=== PATIENT | female | born 1945 | race Caucasian/White ===

== ENCOUNTER 2017-12-27 09:13 | Outpatient (REF) | payer MEDICARE, OTHER, SELFPAY ==
[2017-12-27 13:11] LABS: Cholesterol 196 mg/dL (50-200); HDL Cholesterol 78 mg/dL (40-60); LDL CHOLESTEROL 100 mg/dL (<100); TSH (W/Ref FT4) 1.77 uIU/mL (0.358-3.74); Triglyceride 90 mg/dL (30-150)
== END 2017-12-27 09:33 ==
LOC: NCHCN 09:13
PROVIDERS: Visit Provider Nurse Practitioner
DX: R73.03 Prediabetes (principal); I69.30 Unspecified sequelae of cerebral infarction; E03.9 Hypothyroidism, unspecified
CPT/HCPCS: 80061; 83721; 83036; 84443

== ENCOUNTER 2018-04-11 09:35 | Outpatient (REF) | payer MEDICARE, OTHER, SELFPAY ==
[2018-04-11 15:12] LABS: Anion Gap 7.6 mmol/L (3-11); BUN 14 mg/dL (7-18); CO2 28.4 mmol/L (21.0-32.0); CREATININE 0.73 mg/dL (0.55-1.02); Calcium 8.6 mg/dL (8.5-10.1); Chloride 105 mmol/L (98-107); Cholesterol 149 mg/dL (50-200); Glucose 109 mg/dL (70-100); HDL Cholesterol 84 mg/dL (40-60); LDL CHOLESTEROL 53 mg/dL (<100); Potassium 4.3 mmol/L (3.5-5.1); Sodium 141 mmol/L (136-145); Triglyceride 74 mg/dL (30-150)
[2018-04-12 10:31] LABS: Hepatitis C Ab w Rflx HCV PCR Negative (NEGAT)
== END 2018-04-11 09:55 ==
LOC: NCHCN 09:35
PROVIDERS: PCP Nurse Practitioner; Visit Provider Nurse Practitioner
DX: E03.9 Hypothyroidism, unspecified (principal); R73.01 Impaired fasting glucose; Z11.59 Encounter for screening for other viral diseases
CPT/HCPCS: 80048; 80061; 83721; 86803

== ENCOUNTER 2018-12-26 09:46 | Outpatient (REF) | payer MEDICARE, SELFPAY ==
[2018-12-26 13:30] LABS: ALT 21 U/L (14-59); AST 17 U/L (15-37); Albumin 3.6 g/dL (3.4-5.0); Alkaline Phosphatase 55 U/L (46-116); Anion Gap 8.2 mmol/L (3-11); BUN 12 mg/dL (7-18); Bilirubin, Total 0.5 mg/dL (0.2-1.0); CO2 26.8 mmol/L (21.0-32.0); CREATININE 0.64 mg/dL (0.55-1.02); Calcium 8.6 mg/dL (8.5-10.1); Calculated LDL 35 mg/dL; Chloride 109 mmol/L (98-107); Cholesterol 138 mg/dL (50-200); Glucose 100 mg/dL (70-100); HDL Cholesterol 80 mg/dL (40-60); Potassium 4.1 mmol/L (3.5-5.1); Sodium 144 mmol/L (136-145); Total Protein 6.9 g/dL (6.4-8.2); Triglyceride 118 mg/dL (30-150)
== END 2018-12-26 10:06 ==
LOC: NCHCN 09:46
PROVIDERS: PCP Nurse Practitioner; Visit Provider Family Medicine
DX: E03.9 Hypothyroidism, unspecified (principal); R73.03 Prediabetes; R10.2 Pelvic and perineal pain; I69.30 Unspecified sequelae of cerebral infarction
CPT/HCPCS: 80053; 80061

== ENCOUNTER 2019-09-28 01:52 | Outpatient (CLI) | payer MEDICARE, OTHER, SELFPAY ==
--- NOTE | 2019-09-28 | DI.MAMMO_ITS ---
EXAM: MAMMO SCREENING CLINICAL HISTORY: SCREENING, Z12.31 TECHNIQUE: Mammograms were interpreted according to the usual protocol including computer analysis w sofatronic CAD system, tomosynthesis and C-view imaging. COMPARISON: FINDINGS: The breasts are very dense with fairly symmetrical distribution of fibroglandular tissue. No dominan t mass or clumped microcalcification is identified in either breast. The current examination is comp ared with previous examinations including November 2016 and there has no gross change in appearance com parison previous studies. IMPRESSION: No specific evidence of malignancy at this time. Routine screening examinations are suggested yearly intervals due to the family history of breast carcinoma. BI-RADS Category 1 - Negative Breast Density - Category D - Extremely dense
--- NOTE | 2019-09-28 | DI.DEXA_ITS ---
EXAM: XR DEXA BONE DENSITY W/WO MARTIN CLINICAL HISTORY: AGE-RELATED OSTEOPOROSIS, M81.0 TECHNIQUE: COMPARISON: No exams were available for comparison FINDINGS: DEXA scan was performed according to the usual protocol. Please see accompanying data sheets. Findings for left hip scanning are T-score -1.6 with left femoral neck T-score -1.8. Previous examin ation of November 2016 showed left hip T-score -1.5. Lumbar spine scanning shows T-score -2.9, prior study of November 2016 showed lumbar T-score -2.8. Left forearm scanning shows T-score -0.7, prior study of 2017 showed left forearm T-score -0.2. IMPRESSION: Findings consistent with osteoporosis according to the WHO criteria. The lateral vertebral scanogram shows no evidence of a vertebral compression fracture.
== END 2019-09-28 02:12 ==
PROVIDERS: PCP Family Medicine; Visit Provider Nurse Practitioner Family
DX: M81.0 Age-related osteoporosis without current pathological fracture (principal); Z12.31 Encounter for screening mammogram for malignant neoplasm of breast; Z80.3 Family history of malignant neoplasm of breast
CPT/HCPCS: 77063; 77067; 77080

== ENCOUNTER 2019-11-29 10:05 | Outpatient (REF) | payer MEDICARE, OTHER, SELFPAY ==
[2019-11-29 21:02] LABS: Hemoglobin A1C 6.1 % (3.8-5.6)
[2019-11-29 21:06] LABS: ALT 23 U/L (14-59); AST 18 U/L (15-37); Albumin 3.6 g/dL (3.4-5.0); Alkaline Phosphatase 47 U/L (46-116); Anion Gap 4.4 mmol/L (3-11); BUN 15 mg/dL (7-18); Bilirubin, Total 0.4 mg/dL (0.2-1.0); CO2 28.6 mmol/L (21.0-32.0); CREATININE 0.58 mg/dL (0.55-1.02); Calcium 8.2 mg/dL (8.5-10.1); Calculated LDL 55 mg/dL (<100); Chloride 109 mmol/L (98-107); Cholesterol 158 mg/dL (<200); Glucose 75 mg/dL (74-106); HDL Cholesterol 84 mg/dL (40-60); Potassium 4.2 mmol/L (3.5-5.1); Sodium 142 mmol/L (136-145); TSH (W/Ref FT4) 0.75 uIU/mL (0.36-3.74); Total Protein 6.7 g/dL (6.4-8.2); Triglyceride 95 mg/dL (<150)
== END 2019-11-29 10:25 ==
LOC: NCHCN 10:05
PROVIDERS: PCP Family Medicine; Visit Provider Family Medicine
DX: I10 Essential (primary) hypertension (principal); R73.03 Prediabetes; E03.9 Hypothyroidism, unspecified
CPT/HCPCS: 80053; 80061; 83036; 84443

== ENCOUNTER 2020-02-08 08:33 | Outpatient (REF) | payer MEDICARE, OTHER, SELFPAY ==
[2020-02-08 22:10] LABS: Hemoglobin A1C 6.1 % (<5.7)
== END 2020-02-08 08:53 ==
LOC: LBN 08:33
PROVIDERS: PCP Family Medicine; Visit Provider Family Medicine
DX: R73.03 Prediabetes (principal)
CPT/HCPCS: 83036

== ENCOUNTER 2020-07-04 01:25 | Outpatient (CLI) | payer MEDICARE, SELFPAY ==
--- NOTE | 2020-07-04 08:00 | DI.NM_ITS ---
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 Nuclear Acquisition: Rest Tc-99m/Stress Tc-99m 1 day Rest Isotope: Tc-99m Sestamibi. Dose: 11.0 Date: 07/04/2020 Injection Time: 0815 Stress Isotope: Tc-99m Sestamibi. Dose: 35.5 Date: 07/04/2020 Injection Time: 0950 HR Resting HR Supine: 71 bpm Max Heart Rate (APMHR): 146 bpm Resting HR Standin bpm Target HR (85% APMHR): 124 bpm Max HR Achieved: 162 bpm % of APMHR: 110 Recovery HR: 94 bpm HR response to stress: Accelerated HR response to stress BP Resting BP Supine: 122/86 mmHg Resting BP Standin/84 mmHg Max BP: 200/96 mmHg Recovery BP: 162/92 mmHg BP response to stress: Normal blood pressure response to stress. ECG Resting ECG: Sinus Rhythm Ectopy: Occasional PVC Stress ECG: Sinus Tachycardia ST Change: No significant ST segment changes noted Arrhythmia: Increased ectopy with maximal effort of exercise: PVCs, couplets, triplets Recovery ECG: Sinus Rhythm Recovery ST Change: No significant ST segment changes noted Recovery Arrhythmia: PACs, PAC couplet Clinical Reason for Termination: Dyspnea Stress Symptoms: Dyspnea Exercise duration: 4 min07 sec Highest Stage Reached: Stage 2: 2.5 mph at 12% grade. Exercise capacity: 5.95 METs Rate Pressure Product: 41041 Stress ECG Conclusion 1. The patient exercised for 4 minutes (6 METS). 2. The patient's heart rate and blood pressure augmented appropriately. 3. There is no evidence of ischemia on the ECG portion of the exam. Stress Test Summary STAGE Time (mins) Speed (mph) Grade (%) HR BP SYMPTOMS METS Supine 71 122/86 Standing 71 128/84 1 3 1.7 10 143 176/90 moderate SOB, SPO2 97% 4.6 1 min recovery 101 200/96 3 min recovery 89 174/90 6 min recovery 94 162/92 MPI Conclusion The ejection fraction was 63% with stress. There were no wall motion abnormalities There is a small entirely reversible area of perfusion defect of the basal inferior septum. This likely represents an abnormal stress test.
== END 2020-07-04 01:45 ==
PROVIDERS: PCP Family Medicine; Visit Provider Family Medicine
DX: I20.9 Angina pectoris, unspecified (principal); I10 Essential (primary) hypertension; J44.9 Chronic obstructive pulmonary disease, unspecified; Z82.49 Family history of ischemic heart disease and other diseases of the circulatory system
CPT/HCPCS: 78452; 93016; 93018; 93017

== ENCOUNTER → 2020-07-19 12:53 | Outpatient (BNVA) | payer MEDICARE, SELFPAY | PROVIDERS: PCP Family Medicine; Referring Provider Family Medicine; Visit Provider Internal Medicine Cardiovascular Disease | DX: I63.531 Cerebral infarction due to unspecified occlusion or stenosis of right posterior cerebral artery (principal); E78.5 Hyperlipidemia, unspecified; I63.9 Cerebral infarction, unspecified; R93.89 Abnormal findings on diagnostic imaging of other specified body structures | CPT/HCPCS: 99203; 99213 ==

== ENCOUNTER 2021-07-08 01:57 | Outpatient (CLI) | payer MEDICARE, SELFPAY ==
--- NOTE | 2021-07-08 10:30 | DI.MAMMO_ITS ---
Exam(s) MAMMO SCREENING EXAM: MAMMO SCREENING CLINICAL HISTORY: SCREENING, Z12.31; FAMILY H/O BREAST CA, Z80.3 TECHNIQUE: Bilateral full field digital CC and MLO mammographic images were obtained with 3D tomosyn thesis and utilizing computer aided detection (CAD). COMPARISON: Available for comparison. FINDINGS: Masses/Architectural Distortion: There is a question of architectural distortion on the right MLO vie w slice 23 on the tomograms. Microcalcifications: No suspicious pleomorphic-type are seen. Skin Thickening/Nipple Retraction: None. IMPRESSION: 1. Question of architectural distortion in the right breast posteriorly. 2. This area should be further evaluated with a spot compression view ultrasound may be indicated at that time. BI-RADS Category 0 - Assessment Incomplete: Need additional imaging evaluation Breast Density - Category C - Heterogeneously dense Breast density category C or D implies that the patient has dense breast tissue. Dense breast tissue is very common and is not abnormal but dense breast tissue can make it harder to find cancer on a ma mmogram. Also, dense breast tissue may increase their breast cancer risk. This information about the result of the mammogram report was provided to the patient to raise their awareness. Use this report when you speak with the patient about their risks for breast cancer, which includes their family hist ory. At that time, you may recommend for more screening tests (Ultrasound or MRI) as they might be us eful based on their risk. A negative radiographic report should not delay biopsy if a dominant or clinically suspicious mass is present. Up to ten percent of cancers are not identified on mammography. A negative report may reinforce clinical impression. Adenosis and dense breasts may obscure an underlying neoplasm. False positive reports average 6 to 10%. Patient will receive a letter notifying them of these results.
== END 2021-07-08 02:17 ==
PROVIDERS: PCP Family Medicine; Visit Provider Family Medicine
DX: Z12.31 Encounter for screening mammogram for malignant neoplasm of breast (principal); Z80.3 Family history of malignant neoplasm of breast; R92.8 Other abnormal and inconclusive findings on diagnostic imaging of breast
CPT/HCPCS: 77063; 77067

== ENCOUNTER 2021-07-15 17:03 | Outpatient (REF) | payer MEDICARE, SELFPAY ==
--- OUTSIDE RECORDS SUMMARY | 2021-07-15 17:13 | XMS_ITS | CCD ---
:1945 Author Care Team Providers Name Role Phone DEBBIE MCKINNEY Attending Physician Unavailable Vital Signs Unknown or Not Available. Allergies Unknown or Not Available. Procedures Procedure Code Procedure Type Date Arthrocentesis Aspir&/Inj Major 91826 CPT 10/02/2020 Jt/Bursa w/o US History of Immunizations Unknown or Not Available. Problems Unknown or Not Available. Results Unknown or Not Available. Active Medications Unknown or Not Available. Medications Administered During Visit Unknown or Not Available. Encounters Encounter Diagnosis Diagnosis Code Start Date Unilateral primary osteoarthritis, left knee [id number] 10/02/2020 Social History Smoking Status Code Start Date End Date Former smoker [id number] Patient Decision Aids Unknown or Not Available. Discharge Instructions You were admitted to [facility] on 10/02/2020 09:37 with a principal diagnosis of Unilateral primary osteoart hritis, left knee You had the following procedures done: Arthrocentesis Aspir&/Inj Major Jt/Bursa w/o US You were discharged from [facility] on 10/02/2020 09:37 Should you have any questions prior to d ischarge, please contact a member of your healthcare team. If you have left the ho spital and have any questions, please contact your primary care physician. Chief Complaint and Reason For Visit Unknown or Not Available. Function Status Unknown or Not Available. Plan of Care Unknown or Not Available. Referral/Transition of Care Unknown or Not Available.
[2021-07-15 17:14] LABS: FREE T4 0.71 ng/dL (0.76-1.46); TSH 1.54 uIU/mL (0.36-3.74)
== END 2021-07-15 17:04 | disposition home or self-care (01) ==
LOC: NCHCN 17:03
PROVIDERS: PCP Family Medicine; Visit Provider Family Medicine
DX: R73.03 Prediabetes (principal); E03.9 Hypothyroidism, unspecified
CPT/HCPCS: 83036; 84439; 84443

== ENCOUNTER 2021-07-16 01:16 | Outpatient (CLI) | payer MEDICARE, SELFPAY ==
--- NOTE | 2021-07-16 | DI.MAMMO_ITS ---
Exam(s) MAMMO SCREEN CALL BACK UNI EXAM: MAMMO SCREEN CALL BACK UNI CLINICAL HISTORY: F/U MAMMO, ? ARCHITECTURAL DISTORTION TECHNIQUE: Spot compression MLO view and tomographic imaging were performed. COMPARISON: 08 July 2021 and exams back to 2013 FINDINGS: No suspicious masses or suspicious microcalcifications are seen. No persistent abnormality is seen on the additional views performed. The findings are consistent wit h overlying fibroglandular tissue. There has been no significant change from prior exams. IMPRESSION: BI-RADS Category 1, Negative Yearly screening mammography is recommended. Breast Density - Category B, scattered fibroglandular densities.
--- NOTE | 2021-07-16 | DI.US_ITS ---
Exam(s) US BREAST RT COMPLETE EXAM: US BREAST RT COMPLETE CLINICAL HISTORY: f/u mammo, ? architectual distortion TECHNIQUE: Ultrasound right breast performed using standard protocol. COMPARISON: MG Screening Bilat Mammo from 08/29/2013 MG Screening Bilat Mammo from 08/12/2015 MG Screening Bilat Mammo from 12/01/2016 MG MG MAMMO SCREENING from 09/28/2019 MG MG MAMMO SCREENING from 07/08/2021 MG MG MAMMO SCREEN CALL BACK UNI from 07/16/2021 FINDINGS: Whole breast ultrasound was performed. No solid or cystic masses, hypoechoic foci, areas of abnormal shadowing, or areas of skin thickening. IMPRESSION: No sonographically suspicious finding. BI-RADS Category 1 - Negative DATA REPOSITORY:
== END 2021-07-16 01:36 ==
PROVIDERS: PCP Family Medicine; Visit Provider Family Medicine
DX: Z12.31 Encounter for screening mammogram for malignant neoplasm of breast (principal); R92.8 Other abnormal and inconclusive findings on diagnostic imaging of breast; N64.59 Other signs and symptoms in breast
CPT/HCPCS: 76642; 77063; 77067

== ENCOUNTER 2021-08-21 03:47 | Outpatient (CLI) | payer MEDICARE, SELFPAY ==
[2021-08-21 20:31] LABS: Estradiol <12 pg/mL (See Note)
[2021-08-21 20:45] LABS: Sex Hormone Binding Globulin 58.5 nmol/L (See Note)
[2021-08-23 10:38] LABS: Estriol, Unconjugated <0.07 ng/mL (<0.08)
[2021-08-25 15:51] LABS: Estrone 11 pg/mL
== END 2021-08-21 03:48 | disposition home or self-care (01) ==
LOC: LBO 03:48
PROVIDERS: PCP Family Medicine; Visit Provider Naturopath
DX: E34.51 Complete androgen insensitivity syndrome (principal); M81.8 Other osteoporosis without current pathological fracture
CPT/HCPCS: 36415; 82670; 82677; 82679; 84270

== ENCOUNTER 2021-12-26 00:53 | Outpatient (CLI) | payer MEDICARE, SELFPAY ==
[2021-12-26 10:01] LABS: HCT 43.6 % (36.0-46.0); HGB 14.2 g/dL (11.2-15.7); MCH 30.5 pg (27.0-33.0); MCHC 32.6 % (32.0-36.0); MCV 94 fL (80-95); MPV 9.5 fL (8.0-11.0); Platelet Count 207 10^3/uL (130-400); RBC 4.66 10^6/uL (3.93-5.22); RDW 12.7 % (11.7-14.6); RDW-SD 43.4 fL; WBC 5.17 10^3/uL (4.4-10.8)
[2021-12-26 10:49] LABS: Anion Gap 6.8 mmol/L (3-11); BUN 19 mg/dL (7-18); CO2 31.2 mmol/L (21.0-32.0); CREATININE 0.7 mg/dL (0.55-1.02); Calcium 9.1 mg/dL (8.5-10.1); Chloride 103 mmol/L (98-107); Estimated GFR 89.58 (mL/min/1.73m2); FREE T4 0.87 ng/dL (0.76-1.46); Glucose 86 mg/dL (74-106); Potassium 4.1 mmol/L (3.5-5.1); Sodium 141 mmol/L (136-145); TSH 1.64 uIU/mL (0.36-3.74)
[2021-12-26 20:14] LABS: Parathyroid Hormone,Intact 45 pg/mL (19-88)
[2021-12-29 06:02] LABS: Vitamin D 25 Total 24.7 ng/mL (30-100)
[2021-12-29 10:46] LABS: Beta-CrossLaps (B-CTx) 273 pg/mL
[2021-12-30 12:34] LABS: Testosterone, Total <7.0 ng/dL (8-60)
[2021-12-30 18:09] LABS: Estradiol 20 pg/mL (See Note)
[2021-12-31 13:43] LABS: Estriol, Unconjugated <0.07 ng/mL (<0.08)
== END 2021-12-26 00:54 | disposition home or self-care (01) ==
LOC: LBO 00:53
PROVIDERS: Naturopath; PCP Family Medicine; Visit Provider Internal Medicine Endocrinology, Diabetes & Metabolism
DX: E34.50 Androgen insensitivity syndrome, unspecified (principal); M81.0 Age-related osteoporosis without current pathological fracture; E03.9 Hypothyroidism, unspecified
CPT/HCPCS: 36415; 80048; 82306; 82523; 84403; 85027; 82670; 82677; 83970; 84439; 84443

== ENCOUNTER 2021-12-30 10:19 | Outpatient (REF) | payer MEDICARE, SELFPAY ==
[2021-12-30 11:37] LABS: Creatinine,Urine 53.15 mg/dL
[2021-12-30 11:38] LABS: Total Volume 1550 ml
[2021-12-31 09:18] LABS: Calcium Urine 14.4 mg/dL (See Note); Calcium Urine 24 hr 223 mg/24hrs (100-300); Timed Urine Volume 1550 mL
== END 2021-12-30 10:20 | disposition home or self-care (01) ==
LOC: LBN 10:19
PROVIDERS: PCP Family Medicine; Visit Provider Internal Medicine Endocrinology, Diabetes & Metabolism
DX: E34.50 Androgen insensitivity syndrome, unspecified (principal); M81.0 Age-related osteoporosis without current pathological fracture
CPT/HCPCS: 81050; 82340; 82570

== ENCOUNTER 2022-04-21 09:52 | Outpatient (REF) | payer MEDICARE, SELFPAY ==
[2022-04-21 15:44] LABS: ALT 20 U/L (14-59); AST 21 U/L (15-37); Albumin 3.9 g/dL (3.4-5.0); Alkaline Phosphatase 67 U/L (46-116); Anion Gap 7.6 mmol/L (3-11); BUN 18 mg/dL (7-18); Bilirubin, Total 0.4 mg/dL (0.2-1.0); CO2 28.4 mmol/L (21.0-32.0); CREATININE 0.6 mg/dL (0.55-1.02); Calcium 8.7 mg/dL (8.5-10.1); Calculated LDL 92 mg/dL (<100); Chloride 105 mmol/L (98-107); Cholesterol 185 mg/dL (<200); Estimated GFR 92.97 (mL/min/1.73m2); Glucose 109 mg/dL (74-106); HDL Cholesterol 76 mg/dL (40-60); Potassium 4.3 mmol/L (3.5-5.1); Sodium 141 mmol/L (136-145); TSH (W/Ref FT4) 0.75 uIU/mL (0.36-3.74); Total Protein 7.3 g/dL (6.4-8.2); Triglyceride 89 mg/dL (<150)
[2022-04-21 15:55] LABS: Vitamin D 25 Total 18.4 ng/mL (30-100)
== END 2022-04-21 09:53 | disposition home or self-care (01) ==
LOC: NCHCN 09:52
PROVIDERS: PCP Family Medicine; Visit Provider Family Medicine
DX: I10 Essential (primary) hypertension (principal); M81.0 Age-related osteoporosis without current pathological fracture; E03.9 Hypothyroidism, unspecified; R73.03 Prediabetes; E78.5 Hyperlipidemia, unspecified; Z00.00 Encounter for general adult medical examination without abnormal findings
CPT/HCPCS: 80053; 80061; 82306; 84443

== ENCOUNTER 2022-06-29 10:25 | Outpatient (REF) | payer MEDICARE, SELFPAY | END 2022-06-29 10:26 | disposition home or self-care (01) | LOC: NCHCN 10:25 | PROVIDERS: PCP Family Medicine; Visit Provider Family Medicine | DX: E55.9 Vitamin D deficiency, unspecified (principal); E63.8 Other specified nutritional deficiencies | CPT/HCPCS: 82306 ==

== ENCOUNTER 2022-11-02 00:40 | Outpatient (CLI) | payer MEDICARE, SELFPAY ==
--- NOTE | 2022-11-02 | DI.MAMMO_ITS ---
Exam(s) MAMMO SCREENING EXAM: MAMMO SCREENING CLINICAL HISTORY: SCREENING, Z12.31. TECHNIQUE: Bilateral full field digital CC and MLO mammographic images were obtained with 3D tomosyn thesis and utilizing computer aided detection (CAD). COMPARISON: Prior mammograms were reviewed. Prior ultrasound July 2021 also reviewed. FINDINGS: The fibroglandular tissue pattern is again noted be moderately dense. There are no obvious new spiculated masses nor malignant appearing microcalcification groups. There is no significant architectural distortion nor skin thickening-retraction. IMPRESSION: Moderately dense fibroglandular tissue. No obvious radiographic evidence of malignancy nor significa nt change compared prior mammograms. BI-RADS Category 1 - Negative Breast Density - Category C - Heterogeneously dense Breast density Category C or D implies that the patient has dense breast tissue. Dense breast tissue can make it harder to find cancer on a mammogram. Dense breast tissue is also associated with an incr eased risk of breast cancer. This information about the result of the mammogram report was provided to the patient to raise their awareness. Use this report when you speak with the patient about their risks for breast cancer, which includes their family history. At that time, you may recommend additional screening tests (Ultrasoun d or MRI) as these tests may add significant information. A negative radiographic report should not delay biopsy if a dominant or clinically suspicious mass is present. Up to ten percent of cancers are not identified on mammography. A negative report may reinforce clinical impression. Adenosis and dense breasts may obscure an underlying neoplasm. False positive reports average 6 to 10%. Patient will receive a letter notifying them of these results.
--- NOTE | 2022-11-02 | DI.CT_ITS ---
Exam(s) CT CHEST WO EXAM: CT CHEST WO CLINICAL HISTORY: COPD, J44.9. TECHNIQUE: Multi planar reconstructions were performed. CONTRAST MATERIAL: None COMPARISON: CT CHEST WITH CONTRAST from 07/26/2017 FINDINGS: CHEST: LUNGS: Bilateral hyperinflation is again noted. There are no bullae. No significant findings in tra flavio and mainstem bronchi. No infiltrates nor pleural effusions. No ominous pulmonary nodules. MEDIASTINUM: There is no obvious hilar nor mediastinal adenopathy. Visualized thyroid unremarkable.No obvious axillary adenopathy CARDIAC: Heart size is normal. There is no pericardial effusion.Caliber of the thoracic aorta is wit hin normal limits. VISUALIZED UPPER ABDOMEN: OSSEOUS: No significant osseous lesions.. IMPRESSION: 1. No significant pulmonary nodules. 2. Inflation but no infiltrates nor pleural effusions nor significant intrathoracic adenopathy. 3. No significant change from 07/26/2017 RADIATION DOSE DELIVERED: 391.51mGy.cm Total DLP DATA REPOSITORY: All CT scans at this facility are submitted to the National Radiology Data Registry (NRDR) Dose Index Registry (DIR) with the [employer] (A[employer]). RADIATION OPTIMIZATION: All CT scans at this facility use at least one of these dose optimization te chniques: automated exposure control; mA and/or kV adjustment per patient size (includes targeted exa ms where dose is matched to clinical indication); or iterative reconstruction.
== END 2022-11-02 01:00 ==
PROVIDERS: PCP Family Medicine; Visit Provider Family Medicine
DX: Z12.31 Encounter for screening mammogram for malignant neoplasm of breast (principal); J44.9 Chronic obstructive pulmonary disease, unspecified
CPT/HCPCS: 71250; 77063; 77067

== ENCOUNTER 2023-11-03 12:44 | Outpatient (REF) | payer MEDICARE, SELFPAY ==
[2023-11-03 15:13] LABS: Abs Immature Grans 0.01 10^3/uL (0.0-0.06); Absolute Basophil Count 0.04 10^3/uL (0.0-0.2); Absolute Eosinophil Count 0.19 10^3/uL (0.0-0.7); Absolute Lymphocyte Count 1.58 10^3/uL (1.2-3.4); Absolute Monocyte Count 0.42 10^3/uL (0.1-0.8); Absolute Neutrophil Count 2.45 10^3/uL (1.2-6.7); Basophils % 0.9 %; Eosinophils % 4.1 %; HCT 36.3 % (36.0-46.0); Immature Grans % 0.2 %; Lymphocytes % 33.7 %; MCH 30.2 pg (27.0-33.0); MCHC 33.1 % (32.0-36.0); MCV 91 fL (80-95); MPV 10.3 fL (8.0-11.0); Neutrophils % 52.1 %; Platelet Count 224 10^3/uL (130-400); RBC 3.97 10^6/uL (3.93-5.22); RDW 13.1 % (11.7-14.6); WBC 4.69 10^3/uL (4.4-10.8)
[2023-11-03 15:56] LABS: ALT 16 U/L (14-59); AST 16 U/L (15-37); Albumin 3.7 g/dL (3.4-5.0); Alkaline Phosphatase 59 U/L (46-116); Anion Gap 6.7 mmol/L (3-11); BUN 14 mg/dL (7-18); CO2 28.3 mmol/L (21.0-32.0); CREATININE 0.7 mg/dL (0.55-1.02); Calcium 8.6 mg/dL (8.5-10.1); Calculated LDL 82 mg/dL (<100); Chloride 106 mmol/L (98-107); Cholesterol 172 mg/dL (<200); Estimated GFR 88.47 (mL/min/1.73m2); Glucose 124 mg/dL (74-106); HDL Cholesterol 73 mg/dL (40-60); Sodium 141 mmol/L (136-145); TSH (W/Ref FT4) 0.46 uIU/mL (0.36-3.74); Total Protein 7.1 g/dL (6.4-8.2); Triglyceride 86 mg/dL (<150); Vitamin D 25 Total 21.3 ng/mL (30-100)
[2023-11-03 22:41] LABS: T3, Total 235 ng/dL (97-169)
== END 2023-11-03 12:45 | disposition home or self-care (01) ==
LOC: NCHCN 12:44
PROVIDERS: PCP Family Medicine; Visit Provider Family Medicine
DX: I10 Essential (primary) hypertension (principal); E78.5 Hyperlipidemia, unspecified; E03.9 Hypothyroidism, unspecified; E11.9 Type 2 diabetes mellitus without complications; E55.9 Vitamin D deficiency, unspecified
CPT/HCPCS: 80053; 80061; 82306; 83036; 84443; 84480; 85025

== ENCOUNTER 2024-01-24 01:02 | Outpatient (CLI) | payer MEDICARE, SELFPAY ==
--- NOTE | 2024-01-24 | DI.DEXA_ITS ---
Exam(s) XR DEXA BONE DENSITY W/WO MARTIN EXAM: XR DEXA BONE DENSITY W/WO MARTIN CLINICAL HISTORY: Asymptomatic menopausal state, Z78.0 TECHNIQUE: Routine DEXA evaluation of the lumbar spine, hip, or forearm. COMPARISON: CR XR DEXA BONE DENSITY W/WO MARTIN from 09/28/2019 FINDINGS: Performed on a [email or web address] com unit. Lateral image: No compression fracture evident. Lumbar Spine total T-score: -3.1. Prior reading in September 2019 was -2.9. Hip total T-score:-1.7. Prior reading in September 2019 was -1.6 Independent reading at the level of the femoral neck yields T-score of -2.2 Forearm total T-score: -0.9. Previous reading in September 2019 was -0.7 IMPRESSION: Bone mineral density measures in the osteoporosis range for the spine range. Fracture risk is high. Bone mineral density remains in osteopenia range for the hip. Fracture risk is moderate. Bone mineral density measures in the normal range for the wrist/forearm and therefore fracture risk a t this level is low. Note: Any spine fracture indicates 5x risk for subsequent spine fracture and 2x risk for subsequent h ip fracture. World Health Organization criteria for BMD interpretation classify patients: Normal...... T- Score at or above -1.0 Osteopenic... T- Score between -1.0 and -2.5 Osteoporosis... T-Score at or below -2.5
== END 2024-01-24 01:22 ==
LOC: DI 01:03
PROVIDERS: PCP Family Medicine; Visit Provider Family Medicine
DX: Z78.0 Asymptomatic menopausal state (principal); Z13.820 Encounter for screening for osteoporosis
CPT/HCPCS: 77080

== ENCOUNTER 2024-10-24 11:10 | Outpatient (REF) | payer MEDICARE, SELFPAY ==
[2024-10-24 14:57] LABS: Abs Immature Grans 0.01 10^3/uL (0.0-0.06); HCT 41.2 % (36.0-46.0); HGB 13.4 g/dL (11.2-15.7); Immature Grans % 0.2 %; MCH 29.2 pg (27.0-33.0); MCHC 32.5 % (32.0-36.0); MCV 90 fL (80-95); MPV 10.1 fL (8.0-11.0); Platelet Count 219 10^3/uL (130-400); RBC 4.59 10^6/uL (3.93-5.22); RDW 13.2 % (11.7-14.6); RDW-SD 43.6 fL; WBC 4.94 10^3/uL (4.4-10.8)
[2024-10-24 15:18] LABS: Hemoglobin A1C 6.2 % (<5.7)
[2024-10-24 15:19] LABS: ALT 22 U/L (14-59); AST 19 U/L (15-37); Albumin 3.7 g/dL (3.4-5.0); Alkaline Phosphatase 83 U/L (46-116); Anion Gap 8.3 mmol/L (3-11); BUN 15 mg/dL (7-18); Bilirubin, Total 0.3 mg/dL (0.2-1.0); CO2 27.7 mmol/L (21.0-32.0); Calcium 8.5 mg/dL (8.5-10.1); Chloride 105 mmol/L (98-107); Estimated GFR 91.25 (mL/min/1.73m2); Glucose 102 mg/dL (74-106); Potassium 4.3 mmol/L (3.5-5.1); Sodium 141 mmol/L (136-145); TSH 1.94 uIU/mL (0.36-3.74); Total Protein 7.1 g/dL (6.4-8.2)
[2024-10-24 16:07] LABS: COMMENT (LAB VIEW ONLY) 32.60 mg/dL; Microalb ug/mg Crea 13.2 ug/mg Cr
== END 2024-10-24 11:11 | disposition home or self-care (01) ==
LOC: NCHCN 11:10
PROVIDERS: PCP Family Medicine; Visit Provider Family Medicine
DX: E11.9 Type 2 diabetes mellitus without complications (principal); I10 Essential (primary) hypertension; Z00.00 Encounter for general adult medical examination without abnormal findings; E03.9 Hypothyroidism, unspecified
CPT/HCPCS: 80053; 82043; 82570; 83036; 84443; 85025